=== PATIENT | female | born 1990 | race Caucasian/White ===

== ENCOUNTER → 2018-07-16 | Emergency (ER) | payer BC, OTHER ==
[~2018-07-16] VITALS: Ht 180.3 cm; Wt 102.1 kg
[~2018-07-16] MED LIST: DOXY100C2 PO; HYDR-4226 PO; KETOROLAC 30 MG/ML VIAL IVP ONE; ONDA8TAB9 PO; ONDANSETRON 4 MG/2 ML (SDV) Z0FRAN IVP ONE; PANT40TA2 PO; SULF1TAB38 PO; fentaNYL INJECTION 100 MCG/2 ML AMP IVP ONE
[2018-07-16 21:20] VITALS: BP 136/89
--- NOTE | 2018-07-16 21:22 | ED General ---
General Stated Complaint: GALBLADDER PAIN Source of Information: Patient Exam Limitations: No Limitations History of Present Illness Date Seen by Provider: Jul 16, 2018 Time Seen by Provider: 21:20 Initial Comments Abdominal pain radiating through to her back. This is been ongoing and intermittent for about a year. She's never followed up on this because she's been "scared". She denies any nausea. Denies any fevers or chills. States that she "shits all the time" and that it is usually diarrhea no nausea or vomiting, the pain is worsened by eating. Timing/Duration: Intermittent Severity: Moderate Associated Systoms: No Nausea/Vomiting Allergies and Home Medications Allergies Coded Allergies: Aspirin (Unverified Allergy, Mild, 06/15/11) Home Medications Doxycycline Hyclate 100 Mg Capsule, 1 EACH PO BID Prescribed by: DERIC MANZANARES on 06/15/11 0245 Hydrocodone/Acetaminophen 1 Each Tablet, 1 EACH PO Q6H PRN for PAIN-MODERATE Prescribed by: CHANDLER BALDWIN on 07/16/182152 Ondansetron 8 Mg Tab.rapdis, 8 MG PO Q6H PRN for NAUSEA/VOMITING Prescribed by: CHANDLER BALDWIN on 07/16/182152 Pantoprazole Sodium 40 Mg Tablet.dr, 40 MG PO DAILY Prescribed by: CHANDLER BALDWIN on 07/16/182152 Trimethoprim/Sulfamethoxazole 1 Ea Tablet, 1 EA PO BID, (Reported) Patient Home Medication List Home Medication List Reviewed: Yes Review of Systems Review of Systems Constitutional: see HPI EENTM: see HPI Respiratory: no symptoms reported Cardiovascular: no symptoms reported Gastrointestinal: abdominal pain, diarrhea; No nausea, No vomiting Genitourinary: no symptoms reported Musculoskeletal: no symptoms reported Skin: no symptoms reported Psychiatric/Neurological: No Symptoms Reported Hematologic/Lymphatic: No Symptoms Reported Immunological/Allergic: no symptoms reported Past Uhqexkc-Vgyoua-Vmzaii Hx Patient Social History Recent Foreign Travel: No Contact w/Someone Who Travel: No Physical Exam Vital Signs Vital Signs - First Documented 07/16/18 21:20 Temp 98.6 Pulse 89 Resp 18 B/P (MAP) 136/89 (105) Pulse Ox 100 Capillary Refill : Height, Weight, BMI Height: '" Weight: lbs. oz. kg; BMI Method:Stated General Appearance: No Apparent Distress, WD/WN Eyes: Bilateral Eye Normal Inspection, Bilateral Eye PERRL, Bilateral Eye EOMI Neck: Full Range of Motion, Normal Inspection Respiratory: Normal Breath Sounds, No Accessory Muscle Use, No Respiratory Distress Cardiovascular: Regular Rate, Rhythm, Normal Peripheral Pulses Gastrointestinal: Normal Bowel Sounds, Non Tender, Soft Extremity: Normal Capillary Refill, Normal Inspection Neurologic/Psychiatric: Alert, Oriented x3, No Motor/Sensory Deficits Skin: Normal Color, Warm/Dry Progress/Results/Core Measures Suspected Sepsis SIRS Temperature: Pulse: Respiratory Rate: Laboratory Tests 07/16/18 21:17: White Blood Count 12.8H Blood Pressure / Mean: Laboratory Tests 07/16/18 21:17: Creatinine 1.04, Platelet Count 233, Total Bilirubin 0.2 Results/Orders Lab Results Laboratory Tests Test 07/16/18 21:17 Range/Units White Blood Count 12.8 H 4.3-11.0 10^3/uL Red Blood Count 4.84 4.35-5.85 10^6/uL Hemoglobin 13.2 11.5-16.0 G/DL Hematocrit 40 35-52 % Mean Corpuscular Volume 83 80-99 FL Mean Corpuscular Hemoglobin 27 25-34 PG Mean Corpuscular Hemoglobin Concent 33 32-36 G/DL Red Cell Distribution Width 14.2 10.0-14.5 % Platelet Count 233 130-400 10^3/uL Mean Platelet Volume 13.2 H 7.4-10.4 FL Neutrophils (%) (Auto) 65 42-75 % Lymphocytes (%) (Auto) 29 12-44 % Monocytes (%) (Auto) 5 0-12 % Eosinophils (%) (Auto) 1 0-10 % Basophils (%) (Auto) 0 0-10 % Neutrophils # (Auto) 8.3 H 1.8-7.8 X 10^3 Lymphocytes # (Auto) 3.7 1.0-4.0 X 10^3 Monocytes # (Auto) 0.6 0.0-1.0 X 10^3 Eosinophils # (Auto) 0.1 0.0-0.3 10^3/uL Basophils # (Auto) 0.0 0.0-0.1 10^3/uL Sodium Level 139 135-145 MMOL/L Potassium Level 3.4 L 3.6-5.0 MMOL/L Chloride Level 105 98-107 MMOL/L Carbon Dioxide Level 21 21-32 MMOL/L Anion Gap 13 5-14 MMOL/L Blood Urea Nitrogen 8 7-18 MG/DL Creatinine 1.04 0.60-1.30 MG/DL Estimat Glomerular Filtration Rate > 60 BUN/Creatinine Ratio 8 Glucose Level 91 70-105 MG/DL Calcium Level 9.6 8.5-10.1 MG/DL Corrected Calcium 8.5-10.1 MG/DL Total Bilirubin 0.2 0.1-1.0 MG/DL Aspartate Amino Transf (AST/SGOT) 11 5-34 U/L Alanine Aminotransferase (ALT/SGPT) 13 0-55 U/L Alkaline Phosphatase 75 40-136 U/L Total Protein 7.8 6.4-8.2 GM/DL Albumin 4.7 H 3.2-4.5 GM/DL Lipase 36 8-78 U/L Serum Test, Qualitative NEGATIVE NEGATIVE My Orders Orders - CHANDLER BALDWIN APRN Cbc With Automated Diff (07/16/18 21:11) Comprehensive Metabolic Panel (07/16/18 21:11) Ua Culture If Indicated (07/16/18 21:11) Iv Heplock-Insert (Order) (07/16/18 21:11) Lipase (07/16/18 21:11) Hcg,Qualitative Serum (07/16/18 21:11) Ketorolac Injection (Toradol Injection) (07/16/18 21:15) Fentanyl Injection (Sublimaze Injection (07/16/18 21:15) Ondansetron Injection (Zofran Injectio (07/16/18 21:15) Ct Abdomen/Pelvis W (07/16/18 21:19) Medications Given in ED Current Medications Medications Dose Ordered Sig/Juany Route Start Time Stop Time Status Last Admin Dose Admin Fentanyl Citrate 50 mcg ONCE ONCE IVP 07/16/18 21:15 07/16/18 21:16 DC 07/16/18 21:35 50 MCG Ketorolac Tromethamine 30 mg ONCE ONCE IVP 07/16/18 21:15 07/16/18 21:16 DC 07/16/18 21:34 30 MG Ondansetron HCl 4 mg ONCE ONCE IVP 07/16/18 21:15 07/16/18 21:16 DC 07/16/18 21:35 4 MG Vital Signs/I&O 07/16/18 21:20 Temp 98.6 Pulse 89 Resp 18 B/P (MAP) 136/89 (105) Pulse Ox 100 Capillary Refill : Departure Impression Primary Impression: Right upper quadrant abdominal pain Disposition: 01 HOME, SELF-CARE Condition: Stable Departure-Patient Inst. Decision time for Depature: 21:50 Referrals: [facility] (PCP/Family) Primary Care Physician Patient Instructions: Acute Abdomen (Belly Pain), Adult (DC) Add. Discharge Instructions: Your abdominal pain needs further evaluated with a cold bladder ultrasound. Nausea medication as needed in the meantime, bland non-spicy low-fat diet without any greasy foods in the meantime. Call the scheduling department tomorrow listed on your order for outpatient ultrasound today to make an appointment for this gallbladder ultrasound. The results of this will be sent to your primary care provider. Whatever you have this ultrasound scheduled for you will need to have nothing to eat or drink for 4 hours prior to the ultrasound. Scripts Pantoprazole Sodium (Protonix) 40 Mg Tablet.dr 40 MG PO DAILY, #20 TAB Prov: CHANDLER BALDWIN APRN 07/16/18 Ondansetron (Zofran Odt) 8 Mg Tab.rapdis 8 MG PO Q6H PRN for NAUSEA/VOMITING, #10 TAB Prov: CHANDLER BALDWIN APRN 07/16/18 Hydrocodone/Acetaminophen ([place] 5-325 Tablet) 1 Each Tablet 1 EACH PO Q6H PRN for PAIN-MODERATE MDD 10, #10 TAB Prov: CHANDLER BALDWIN APRN 07/16/18 Work/School Note: Work Release Form Date Seen in the Emergency Department: Jul 16, 2018 Return to Work: Jul 18, 2018 CHANDLER BALDWIN APRN Jul 16, 2018 21:22
[2018-07-16 21:25] LABS: BASOPHILS % (AUTO) 0 % (0-10); EOSINOPHILS # (AUTO) 0.1 10^3/uL (0.0-0.3); EOSINOPHILS % (AUTO) 1 % (0-10); HEMATOCRIT 40 % (35-52); HEMOGLOBIN 13.2 G/DL (11.5-16.0); LYMPHOCYTES # (AUTO) 3.7 X 10^3 (1.0-4.0); LYMPHOCYTES % (AUTO) 29 % (12-44); MEAN CORPUSCULAR HEMOGLOBIN 27 PG (25-34); MEAN CORPUSCULAR HGB CONC 33 G/DL (32-36); MEAN CORPUSCULAR VOLUME 83 FL (80-99); MEAN PLATELET VOLUME 13.2 FL (7.4-10.4); MONOCYTES # (AUTO) 0.6 X 10^3 (0.0-1.0); MONOCYTES % (AUTO) 5 % (0-12); NEUTROPHILS # (AUTO) 8.3 X 10^3 (1.8-7.8); NEUTROPHILS % (AUTO) 65 % (42-75); PLATELET COUNT 233 10^3/uL (130-400); RED BLOOD COUNT 4.84 10^6/uL (4.35-5.85); RED CELL DISTRIBUTION WIDTH 14.2 % (10.0-14.5); WHITE BLOOD COUNT 12.8 10^3/uL (4.3-11.0)
[2018-07-16 21:43] LABS: ALANINE AMINOTRANSFERASE 13 U/L (0-55); ALBUMIN 4.7 GM/DL (3.2-4.5); ALKALINE PHOSPHATASE 75 U/L (40-136); BILIRUBIN,TOTAL 0.2 MG/DL (0.1-1.0); BUN/CREATININE RATIO 8; CALCIUM 9.6 MG/DL (8.5-10.1); CARBON DIOXIDE 21 MMOL/L (21-32); CHLORIDE 105 MMOL/L (98-107); CREATININE SERUM 1.04 MG/DL (0.60-1.30); GFR ESTIMATED > 60; GLUCOSE 91 MG/DL (70-105); LIPASE 36 U/L (8-78); POTASSIUM 3.4 MMOL/L (3.6-5.0); SODIUM 139 MMOL/L (135-145); TOTAL PROTEIN 7.8 GM/DL (6.4-8.2)
--- NOTE | 2018-07-17 06:18 | Diagnostic Imaging Report ---
PROCEDURE: CT abdomen and pelvis with contrast. TECHNIQUE: Multiple contiguous axial images were obtained through the abdomen and pelvis after administration of intravenous contrast. INDICATION: Right upper quadrant abdominal pain. FINDINGS: The lung bases are clear. Liver appears normal. Gallbladder is decompressed. Pancreas is normal. Spleen is not enlarged. Kidneys and adrenals appear normal. The appendix appears normal. Small bowel is not dilated. Colon is unremarkable. There is no intraperitoneal free air or free fluid. Uterus and adnexa appear normal. Urinary bladder is normal. IMPRESSION: Negative CT abdomen and pelvis. I agree with preliminary interpretation. Dictated by: Dictated on workstation # [id number]
== END | disposition home or self-care (01) ==
LOC: EDUNIT# 21:07 → ER 21:09
DX: R10.11 Right upper quadrant pain (principal); Z88.6 Allergy status to analgesic agent
CPT/HCPCS: 36415; 74177; 80053; 83690; 84703; 85025; 96374; 96375

== ENCOUNTER 2021-04-09 11:22 | Emergency (ER) | payer SELFPAY ==
[~2021-04-09] VITALS: Ht 180 cm; Wt 104.0 kg
[~2021-04-09 11:22] MED LIST changes: -KETOROLAC 30 MG/ML VIAL IVP ONE; -ONDANSETRON 4 MG/2 ML (SDV) Z0FRAN IVP ONE; -fentaNYL INJECTION 100 MCG/2 ML AMP IVP ONE
--- NOTE | 2021-04-09 11:58 | ED Lower Extremity ---
General Chief Complaint: Lower Extremity Stated Complaint: RIGHT HEEL PAIN/SWELLING Source: patient History of Present Illness Date Seen by Provider: Apr 09, 2021 Time Seen by Provider: 11:26 Initial Comments 30 yo female presenting with pain to her right heel and Achilles tendon area. She states it has been painful for the last 4 days. Is worse with standing and walking. 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 She denies any acute injury but does again have a lot of repetitive standing and walking. She had some mild pain on the left side but that resolved quickly. However this pain on the right side is lasted for 4 days. She denies any twisting or acute injury. She has been taking some old hydrocodone that she had from a another incident but states they are over a year old so she thinks that they may be and not been very helpful. Resting seems to help some but essentially start walking or standing for long time it starts hurting again. She states that she recently moved back to the [facility] and has not established with provider. Onset: other (4 days) Pain/Injury Location: right ankle (achilles), right heel Method of Injury: unknown Modifying Factors: Worse With Movement; Improves With Rest Allergies and Home Medications Allergies Coded Allergies: aspirin (Unverified Allergy, Mild, 06/15/11) Home Medications Doxycycline Hyclate 100 Mg Capsule, 1 EACH PO BID Prescribed by: DERIC MANZANARES on 06/15/11 0245 Hydrocodone/Acetaminophen 1 Each Tablet, 1 EACH PO Q6H PRN for PAIN-MODERATE Prescribed by: CHANDLER BALDWIN on 07/16/182152 Hydrocodone/Acetaminophen 1 Each Tablet, 1 TAB PO Q6H PRN for PAIN-SEVERE (8-10) Prescribed by: POLLO BELLO on 04/09/21 1529 Ibuprofen 800 Mg Tablet, 800 MG PO Q8H PRN for pain/inflammation Prescribed by: POLLO BELLO on 04/09/21 1528 Ondansetron 8 Mg Tab.rapdis, 8 MG PO Q6H PRN for NAUSEA/VOMITING Prescribed by: CHANDLER BALDWIN on 07/16/182152 Pantoprazole Sodium 40 Mg Tablet.dr, 40 MG PO DAILY Prescribed by: CHANDLER BALDWIN on 07/16/182152 Trimethoprim/Sulfamethoxazole 1 Ea Tablet, 1 EA PO BID, (Reported) Patient Home Medication List Home Medication List Reviewed: Yes Review of Systems Constitutional: No chills, No fever EENTM: no symptoms reported Respiratory: no symptoms reported Cardiovascular: no symptoms reported Gastrointestinal: no symptoms reported Genitourinary: no symptoms reported Musculoskeletal: see HPI Skin: No rash Psychiatric/Neurological: Denies Numbness, Denies Paresthesia Past Izsrnmu-Lpngkv-Ngmcxx Hx Patient Social History Tobacco Use?: Yes Tobacco type used: Cigarettes Smoking Status: Current Everyday Smoker Use of E-Cig and/or Vaping dev: No Substance use?: Yes Substance type: Marijuana Alcohol Use?: No Pt feels they are or have been: No Seasonal Allergies Seasonal Allergies: No Past Medical History Surgeries: Yes Tonsillectomy Respiratory: No Cardiac: No Neurological: No Genitourinary: No Gastrointestinal: No Musculoskeletal: No Endocrine: No Cancer: No Psychosocial: No Integumentary: No Physical Exam Vital Signs Vital Signs - First Documented 04/09/21 11:40 Temp 36.2 Pulse 92 Resp 18 B/P (MAP) 163/91 (115) Pulse Ox 100 O2 Delivery Room Air Capillary Refill : Height, Weight, BMI Height: 5'11.00" Weight: 225lbs. oz. 102.479368hy; BMI Method:Stated General Appearance: WD/WN, no apparent distress Cardiovascular: normal peripheral pulses Ankles: right ankle pain (to palpation of achilles and heel), right ankle soft tissue tenderness (along achilles) Neurologic/Psychiatric: title 1 tutor II-XII nml as tested, alert, oriented x 3 Skin: normal color, warm/dry Progress/Results/Core Measures Results/Orders My Orders Orders - POLLO BELLO MD Foot 3 View Right (04/09/21 11:49) Ed Ortho/Other Supplies Order (04/09/21 12:33) Orthopedic Equiment (04/09/21 12:33) Vital Signs/I&O 04/09/21 04/09/21 11:40 12:37 Temp 36.2 36.2 Pulse 92 92 Resp 18 18 B/P (MAP) 163/91 (115) 163/91 (115) Pulse Ox 100 100 O2 Delivery Room Air Progress Progress Note #1: Progress Note obtain imaging of the foot and heel to look for bony abnormality. If this does not show anything acute plan to treat with a boot to help immobilize the heel and let the Achilles tendon and heel rest. There is no obvious open sores on the heel or foot to cause infection. There is tenderness with palpation and movement from the posterior half of the foot the heel and posterior area around the Achilles tendon. No crepitus noted. Progress Note #2: Progress Note No obvious fracture or dislocation noted. Will try treating with anti- inflammatories and a few pain pills. Placed in the boot for rest immobilization of the heel for the next 7 to 10 days. Counseled to be off for the next 2 to 3 days and call the clinic to get established for care. May need to also see orthopedics with Jairo Rodney or Dr. COKER. If she continues to have issues then she may also need to have an MRI done to evaluate the Achilles tendon in more detail for CT scan to look at the bones and tissues better Progress Note #3: Progress Note xrays demonstrate no fracture, dislocation or acute bony injury. Will treat with walking boot and rest. Counseled on follow-up and return precautions. Use NSAIDs and will also prescribe a few pain pills for severe pain. Diagnostic Imaging Diagonstic Imaging: Xray Plain Films/CT/US/NM/MRI: other (Right foot) Comments NAME: ELIEL JEFFERS [facility] REC#: [id number] PT STATUS: REG ER : 1990 PHYSICIAN: POLLO BELLO MD ADMIT DATE: 04/09/21/ER FS Signed Date of Exam:04/09/21 FOOT 3 VIEW RIGHT CLINICAL HISTORY: Right heel pain. Right foot swelling. COMPARISON: None. TECHNIQUE: 3 views of the right foot. FINDINGS: There is no acute fracture or dislocation of the right foot. Alignment is anatomic. The imaged joint spaces are preserved. IMPRESSION: 1. No acute fracture or dislocation is seen in the right foot. Dictated by: Dictated on workstation # [id number] Dict: 04/09/21 1202 Trans: 04/09/211216 [facility] [id number] Interpreted by: MALOCLM LAYNE DO Electronically signed by: MALCOLM LAYNE DO 04/09/21 1217 Reviewed: Reviewed by Me Departure Impression Primary Impression: Inflammatory pain of right heel Additional Impression: Achilles tendinitis, right leg Disposition: 01 HOME, SELF-CARE Condition: Stable Departure-Patient Inst. Decision time for Depature: 12:25 Referrals: [facility] (PCP/Family) Primary Care Physician PANKAJ COKER MD Patient Instructions: Overuse Injuries (DC), Opioids for Short-Term Treatment of Pain ED, Tendinopathy (DC) Add. Discharge Instructions: Use ice 20-30 minutes every few hours as needed for pain and inflammation. Rest and elevate the foot and heel as much as possible. Use the walking boot to let your heel and foot rest. Continue using this and wearing it until you can follow up with clinic. Call the [facility] clinic at [phone] to see about establishing care with a primary provider. You may also call [phone] to see about setting up an appointment with Dr. Coker or his nurse practitioner Jairo Rodney at the [facility] All discharge instructions reviewed with patient and/or family. Voiced understanding. Scripts Hydrocodone/Acetaminophen (Hydrocodone-Acetamin 5-325 mg) 1 Each Tablet 1 TAB PO Q6H PRN for PAIN-SEVERE (8-10) for 5 Days, #20 TAB 0 Refills Prov: POLLO BELLO MD 04/09/21 Ibuprofen (Ibuprofen) 800 Mg Tablet 800 MG PO Q8H PRN for pain/inflammation for 10 Days, #30 TAB 0 Refills Prov: POLLO BELLO MD 04/09/21 Work/School Note: Work Release Form Date Seen in the Emergency Department: Apr 09, 2021 Return to Work: Apr 12, 2021 Other Restrictions Listed Below: Use walking boot until cleared by doctor Images Extremities-Lower 1 - Tenderness (tender to palpation along heel and up the back of foot/ankle along achilles tendon. No crepitus/increased warmth) POLLO BELLO MD Apr 09, 2021 11:57
--- NOTE | 2021-04-09 12:10 | Diagnostic Imaging Report ---
CLINICAL HISTORY: Right heel pain. Right foot swelling. COMPARISON: None. TECHNIQUE: 3 views of the right foot. FINDINGS: There is no acute fracture or dislocation of the right foot. Alignment is anatomic. The imaged joint spaces are preserved. IMPRESSION: 1. No acute fracture or dislocation is seen in the right foot. Dictated by: Dictated on workstation # [id number]
[2021-04-09] MEDS ORDERED: IBUP-1780 PO ×2 (12:29→15:28)
[2021-04-09] MEDS ORDERED: ACHD5005 PO ×2 (12:29→15:28)
[2021-04-09 12:37] VITALS: BP 163/91
== END 2021-04-09 12:50 | disposition home or self-care (01) ==
LOC: EDUNIT# 11:22 → ER FS 11:25
DX: M79.671 Pain in right foot (principal); M76.61 Achilles tendinitis, right leg; F17.210 Nicotine dependence, cigarettes, uncomplicated
CPT/HCPCS: 73630; 99283; L2114

== ENCOUNTER 2021-11-11 13:07 | Emergency (ER) | payer SELFPAY ==
[~2021-11-11] VITALS: Ht 180 cm; Wt 117.9 kg
[~2021-11-11 13:07] MED LIST changes: +ACHD5005 PO; +IBUP-1780 PO
--- NOTE | 2021-11-11 13:26 | ED Lower Extremity ---
General Chief Complaint: Lower Extremity Stated Complaint: LEFT FOOT INJURY-FALL History of Present Illness Date Seen by Provider: Nov 11, 2021 Time Seen by Provider: 13:26 Initial Comments 31-year-old female who reports that she was coming down some stairs. When she got to the bottom stair she stepped down into some water slipped and fell. She reports that she denies pain in her left ankle. She is able to ambulate and bear weight but hurts. It happened earlier this morning. She does report some mild bruising to the anterior aspect of her upper foot/ Allergies and Home Medications Allergies Coded Allergies: aspirin (Unverified Allergy, Mild, 06/15/11) Patient Home Medication List Home Medication List Reviewed: Yes Doxycycline Hyclate (Doxycycline Hyclate) 100 Mg Capsule, 1 EACH PO BID Prescribed by: DERIC MANZANARES on 06/15/11 0245 Hydrocodone/Acetaminophen (Hydrocodone/Acetaminophen 5 MG/325 MG TAB) 1 Each Tablet, 1 EACH PO Q6H PRN for PAIN-MODERATE Prescribed by: CHANDLER BALDWIN on 07/16/182152 Hydrocodone/Acetaminophen (Hydrocodone-Acetamin 5-325 mg) 1 Each Tablet, 1 TAB PO Q6H PRN for PAIN-SEVERE (8-10) Prescribed by: POLLO BELLO on 04/09/21 1529 Ibuprofen (Ibuprofen) 800 Mg Tablet, 800 MG PO Q8H PRN for pain/inflammation Prescribed by: POLLO BELLO on 04/09/21 1528 Ondansetron (Zofran Odt) 8 Mg Tab.rapdis, 8 MG PO Q6H PRN for NAUSEA/VOMITING Prescribed by: CHANDLER BALDWIN on 07/16/182152 Pantoprazole Sodium (Protonix) 40 Mg Tablet.dr, 40 MG PO DAILY Prescribed by: CHANDLER BALDWIN on 07/16/182152 Trimethoprim/Sulfamethoxazole (Bactrim Ds) 1 Ea Tablet, 1 EA PO BID, (Reported) Entered as Reported by: ASHLEY CASEY on 06/15/11 0217 Review of Systems Constitutional: no symptoms reported EENTM: no symptoms reported Respiratory: no symptoms reported Cardiovascular: no symptoms reported Gastrointestinal: no symptoms reported, see HPI Musculoskeletal: see HPI Skin: see HPI Psychiatric/Neurological: No Symptoms Reported Past Fvaudqs-Zhqkek-Tdjrnl Hx Seasonal Allergies Seasonal Allergies: No Past Medical History Surgeries: Yes Tonsillectomy Respiratory: No Cardiac: No Neurological: No Genitourinary: No Gastrointestinal: No Musculoskeletal: No Endocrine: No Cancer: No Psychosocial: No Integumentary: No Physical Exam Vital Signs Vital Signs - First Documented 11/11/21 13:23 Temp 36.5 Pulse 93 Resp 17 B/P (MAP) 152/97 (115) O2 Delivery Room Air Capillary Refill : Height, Weight, BMI Height: 5'11.00" Weight: 225lbs. oz. 102.715578tm; 32.00 BMI Method:Stated General Appearance: WD/WN, no apparent distress Neck: full range of motion, supple Cardiovascular: normal peripheral pulses, regular rate, rhythm Respiratory: lungs clear, normal breath sounds Gastrointestinal: non tender, soft Hips: bilateral hip non-tender Legs: bilateral leg non-tender Knees: bilateral knee non-tender Ankles: right ankle non-tender, right ankle normal inspection, right ankle normal range of motion, right ankle no evidence of injury; left ankle soft tissue tenderness, left ankle swelling Neurologic/Tendon: normal sensation, normal motor functions Neurologic/Psychiatric: alert, normal mood/affect, oriented x 3 Skin: other (Mild ecchymosis to the anterior aspect of the left ankle) Progress/Results/Core Measures Results/Orders My Orders Orders - GLADYS CROUCH DO Ankle 3 View Left (11/11/21 13:28) Vital Signs/I&O 11/11/21 11/11/21 13:23 14:27 Temp 36.5 36.5 Pulse 93 93 Resp 17 17 B/P (MAP) 152/97 (115) 152/97 O2 Delivery Room Air Room Air Progress Progress Note : Progress Note Patient's x-ray shows no acute findings. Patient with a ankle sprain. Discussed with her supportive care. Patient stable discharged home. If her symptoms are not improved in 7 to 10 days she should follow-up with her primary care provider for repeat evaluation Diagnostic Imaging Diagonstic Imaging: Xray Plain Films/CT/US/NM/MRI: ankle Comments ANKLE 3 VIEW LEFT HISTORY: Left ankle pain. TECHNIQUE: Three views of the left ankle. COMPARISON: None. FINDINGS: No acute fracture or dislocation is seen in the left ankle. Alignment appears normal. Joint spaces are preserved. The ankle mortise is symmetric and the talar dome is intact. There is no ankle joint effusion. IMPRESSION: 1. No acute osseous abnormality is seen in the left ankle. Reviewed: Reviewed by Me, Reviewed/Discussed Departure Impression Primary Impression: Left ankle sprain Qualified Codes: S93.402A - Sprain of unspecified ligament of left ankle, initial encounter Disposition: HOME, SELF-CARE Condition: Stable Departure-Patient Inst. Referrals: [facility] (PCP/Family) Primary Care Physician Patient Instructions: Ankle Sprain ED Add. Discharge Instructions: Ice for 20 minutes 4 times daily for the next 24 to 36 hours then you may use warm moist heat after that Tylenol or ibuprofen as needed for discomfort Tomasz wrap or similar ankle brace available at [facility], [facility], etc. as needed for pain All discharge instructions reviewed with patient and/or family. Voiced understanding. GLADYS CROCUH DO Nov 11, 2021 13:26
--- NOTE | 2021-11-11 14:07 | Diagnostic Imaging Report ---
HISTORY: Left ankle pain. TECHNIQUE: Three views of the left ankle. COMPARISON: None. FINDINGS: No acute fracture or dislocation is seen in the left ankle. Alignment appears normal. Joint spaces are preserved. The ankle mortise is symmetric and the talar dome is intact. There is no ankle joint effusion. IMPRESSION: 1. No acute osseous abnormality is seen in the left ankle. Dictated by: Dictated on workstation # [id number]
[2021-11-11 14:27] VITALS: BP 152/97
== END 2021-11-11 14:27 | disposition home or self-care (01) ==
LOC: EDUNIT# 13:07 → ER FS 13:09
DX: S93.402A Sprain of unspecified ligament of left ankle, initial encounter (principal); W10.9XXA Fall (on) (from) unspecified stairs and steps, initial encounter
CPT/HCPCS: 73610

== ENCOUNTER 2022-01-25 17:22 | Emergency (ER) | payer OTHER ==
[~2022-01-25] VITALS: Ht 180 cm; Wt 100.0 kg
[2022-01-25] MEDS ORDERED: CYCLOBENZAPRINE 10 MG (FLEXERIL) TAB PO SCH (18:00)
[2022-01-25] MEDS ORDERED: KETOROLAC 60 MG/2 ML VIAL IM ONE (18:00)
--- NOTE | 2022-01-25 18:05 | ED Upper Extremity ---
General Chief Complaint: Upper Extremity Stated Complaint: R SIDE SHOULDER PAIN Source: patient Exam Limitations: no limitations History of Present Illness Date Seen by Provider: January 25, 2022 Time Seen by Provider: 17:30 Initial Comments Patient is a 31-year-old female who presents with right shoulder pain after lifting a heavy item from the ground 3 minutes prior to ED arrival. Patient reports right trapezius muscle pain/spasm worse with arm movement and rotation. Patient took 800 mg of ibuprofen prior to ED arrival with limited relief. Denies neck pain and right shoulder joint pain. No other acute symptoms or complaints. Onset: this morning Severity: moderate Pain/Injury Location: right shoulder Method of Injury: other Modifying Factors: Improves With Other Allergies and Home Medications Allergies Coded Allergies: aspirin (Unverified Allergy, Mild, 06/15/11) Patient Home Medication List Home Medication List Reviewed: Yes Doxycycline Hyclate (Doxycycline Hyclate) 100 Mg Capsule, 1 EACH PO BID Prescribed by: DERIC MANZANARES on 06/15/11 0245 Hydrocodone/Acetaminophen (Hydrocodone/Acetaminophen 5 MG/325 MG TAB) 1 Each Tablet, 1 EACH PO Q6H PRN for PAIN-MODERATE Prescribed by: CHANDLER BALDWIN on 07/16/182152 Hydrocodone/Acetaminophen (Hydrocodone-Acetamin 5-325 mg) 1 Each Tablet, 1 TAB PO Q6H PRN for PAIN-SEVERE (8-10) Prescribed by: POLLO BELLO on 04/09/21 1529 Ibuprofen (Ibuprofen) 800 Mg Tablet, 800 MG PO Q8H PRN for pain/inflammation Prescribed by: POLLO BELLO on 04/09/21 1528 Ondansetron (Zofran Odt) 8 Mg Tab.rapdis, 8 MG PO Q6H PRN for NAUSEA/VOMITING Prescribed by: CHANDLER BALDWIN on 07/16/182152 Pantoprazole Sodium (Protonix) 40 Mg Tablet.dr, 40 MG PO DAILY Prescribed by: CHANDLER BALDWIN on 07/16/182152 Trimethoprim/Sulfamethoxazole (Bactrim Ds) 1 Ea Tablet, 1 EA PO BID, (Reported) Entered as Reported by: ASHLEY CASEY on 06/15/11 0217 Review of Systems Constitutional: see HPI EENTM: see HPI Respiratory: see HPI Cardiovascular: see HPI Gastrointestinal: see HPI Genitourinary: see HPI Musculoskeletal: see HPI Skin: other Psychiatric/Neurological: Other Past Rnekabr-Hrjinw-Khhmtq Hx Patient Social History Tobacco Use?: No Seasonal Allergies Seasonal Allergies: No Past Medical History Surgeries: Yes Tonsillectomy Respiratory: No Cardiac: No Neurological: No Genitourinary: No Gastrointestinal: No Musculoskeletal: No Endocrine: No Cancer: No Psychosocial: No Integumentary: No Physical Exam Vital Signs Capillary Refill : Height, Weight, BMI Height: 5'11.00" Weight: 225lbs. oz. 102.205764so; 36.00 BMI Method:Stated General Appearance: WD/WN, moderate distress HEENT: PERRL/EOMI, normal ENT inspection Neck: non-tender, full range of motion, supple Cardiovascular: regular rate, rhythm Respiratory: lungs clear Back: muscle spasm (Right trapezius) Shoulder: no evidence of injury, normal ROM Elbow/Forearm: non-tender, Right Progress/Results/Core Measures Results/Orders My Orders Orders - CAMERON JIMENES DO Ketorolac Injection (Toradol Injection) (01/25/22 18:00) Cyclobenzaprine Tablet (Flexeril Tablet) (01/25/22 18:00) Medications Given in ED Current Medications Medications Dose Ordered Sig/Juany Route Start Time Stop Time Status Last Admin Dose Admin Ketorolac Tromethamine 60 mg ONCE ONCE IM 01/25/22 18:00 01/25/22 18:01 DC 01/25/22 18:04 60 MG Departure Communication (Admissions) Reproducible musculoskeletal pain without midline tenderness or joint involvement. Pain addressed with provement. Recommendations are PCP follow-up with supportive care. Return precautions reviewed. Patient verbalizes understanding agreement with discharge instructions prior to departure. Impression Primary Impression: Strain of right trapezius muscle Disposition: HOME, SELF-CARE Condition: Stable Departure-Patient Inst. Referrals: [facility] (PCP/Family) Primary Care Physician Patient Instructions: Muscle Strain (DC) Add. Discharge Instructions: You were evaluated in the emergency department for right shoulder pain. Please continue ibuprofen for pain and take tramadol and Flexeril as needed for additional relief. Limit right arm use and lifting until cleared by your primary care physician. All discharge instructions reviewed with patient and/or family. Voiced understanding. Scripts Cyclobenzaprine HCl (Cyclobenzaprine HCl) 10 Mg Tablet 10 MG PO TID, #30 TAB Prov: CAMERON JIMENES DO 01/25/22 Tramadol HCl (Tramadol HCl) 50 Mg Tablet 50 MG PO Q6H PRN for PAIN for 3 Days, #10 TAB 0 Refills Prov: CAMERON JIMENES DO 01/25/22 Work/School Note: Work Release Form Date Seen in the Emergency Department: January 25, 2022 Return to Work: January 26, 2022 Restrictions: Need Release from Doctor CAMERON JIMENES DO January 25, 2022 18:05
[2022-01-25] MEDS ORDERED: CYCL10TA25 PO (18:15)
[2022-01-25] MEDS ORDERED: TRM50T PO (18:15)
== END 2022-01-25 18:25 | disposition home or self-care (01) ==
LOC: EDUNIT# 17:22 → ER FS 17:24
DX: S46.811A Strain of other muscles, fascia and tendons at shoulder and upper arm level, right arm, initial encounter (principal); X50.0XXA Overexertion from strenuous movement or load, initial encounter
CPT/HCPCS: 99283

== ENCOUNTER 2022-05-08 11:34 | Emergency (ER) | payer SELFPAY ==
[~2022-05-08] VITALS: Ht 180 cm; Wt 100.0 kg
[~2022-05-08 11:34] MED LIST changes: +CYCL10TA25 PO; +TRM50T PO
--- NOTE | 2022-05-08 12:18 | ED Lower Extremity ---
General Chief Complaint: Lower Extremity Stated Complaint: RT FOOT INJ Nursing Triage Note: RIGHT ANKLE AND GREAT TOE PAIN AFTER CATCHING HER GREAT TOE ON A CABINET 2 DAYS AGO. Source: patient Exam Limitations: no limitations History of Present Illness Date Seen by Provider: May 08, 2022 Time Seen by Provider: 11:45 Initial Comments Patient is 31-year-old female who presents with left foot swelling tenderness after hyperextending foot yesterday. Patient is continue to work walk on foot despite pain. Patient taking ibuprofen and Tylenol for pain. Onset: just prior to arrival Pain/Injury Location: left foot Method of Injury: other Modifying Factors: Improves With Other Allergies and Home Medications Allergies Coded Allergies: aspirin (Unverified Allergy, Mild, 06/15/11) Patient Home Medication List Home Medication List Reviewed: No Cyclobenzaprine HCl (Cyclobenzaprine HCl) 10 Mg Tablet, 10 MG PO TID Prescribed by: CAMERON JIMENES on 01/25/221814 Doxycycline Hyclate (Doxycycline Hyclate) 100 Mg Capsule, 1 EACH PO BID Prescribed by: DERIC MANZANARES on 06/15/11 0245 Hydrocodone/Acetaminophen (Hydrocodone/Acetaminophen 5 MG/325 MG TAB) 1 Each Tablet, 1 EACH PO Q6H PRN for PAIN-MODERATE Prescribed by: CHANDLER BALDWIN on 07/16/182152 Hydrocodone/Acetaminophen (Hydrocodone-Acetamin 5-325 mg) 1 Each Tablet, 1 TAB PO Q6H PRN for PAIN-SEVERE (8-10) Prescribed by: POLLO BELLO on 04/09/21 152 Ibuprofen (Ibuprofen) 800 Mg Tablet, 800 MG PO Q8H PRN for pain/inflammation Prescribed by: POLLO BELLO on 04/09/21 152 Ondansetron (Zofran Odt) 8 Mg Tab.rapdis, 8 MG PO Q6H PRN for NAUSEA/VOMITING Prescribed by: CHANDLER BALDWIN on 07/16/182152 Pantoprazole Sodium (Protonix) 40 Mg Tablet.dr, 40 MG PO DAILY Prescribed by: CHANDLER BALDWIN on 07/16/182152 Tramadol HCl (Tramadol HCl) 50 Mg Tablet, 50 MG PO Q6H PRN for PAIN Prescribed by: CAMERON JIMENES on 01/25/221815 Trimethoprim/Sulfamethoxazole (Bactrim Ds) 1 Ea Tablet, 1 EA PO BID, (Reported) Entered as Reported by: ASHLEY CASEY on 06/15/11 0217 Review of Systems Constitutional: see HPI Musculoskeletal: see HPI Past Sgixosq-Ezanrf-Rxvezu Hx Patient Social History Tobacco Use?: Yes Tobacco type used: Cigarettes Smoking Status: Current Everyday Smoker Use of E-Cig and/or Vaping dev: No Substance use?: Yes Substance type: Marijuana Alcohol Use?: No Pt feels they are or have been: No Seasonal Allergies Seasonal Allergies: No Past Medical History Surgeries: Yes Tonsillectomy Respiratory: No Cardiac: No Neurological: No Last Menstrual Period: May 08, 2022 Genitourinary: No Gastrointestinal: No Musculoskeletal: No Endocrine: No Cancer: No Psychosocial: No Integumentary: No Physical Exam Vital Signs Vital Signs - First Documented 05/08/22 11:39 Temp 36.1 Pulse 100 Resp 16 B/P (MAP) 179/99 (125) O2 Delivery Room Air Capillary Refill : Less Than 3 Seconds Height, Weight, BMI Height: 5'11.00" Weight: 225lbs. oz. 102.397329jh; 30.00 BMI Method:Stated General Appearance: WD/WN, no apparent distress Feet: left foot no evidence of injury, left foot abrasions/lacerations, left foot soft tissue tenderness Neurologic/Tendon: normal sensation, normal motor functions Progress/Results/Core Measures Results/Orders Vital Signs/I&O 05/08/22 11:39 Temp 36.1 Pulse 100 Resp 16 B/P (MAP) 179/99 (125) O2 Delivery Room Air Blood Pressure Mean: 125 Departure Communication (Admissions) Left foot sprain without deformity swelling. Recommendation is supportive care Impression Primary Impression: Sprain of left foot Disposition: 01 HOME, SELF-CARE Condition: Stable Departure-Patient Inst. Decision time for Depature: 12:18 Referrals: NO,LOCAL PHYSICIAN (PCP/Family) Primary Care Physician Patient Instructions: Foot Sprain ED Add. Discharge Instructions: Please wear postoperative shoe for comfort. Take ibuprofen for pain and Tylenol as needed for additional relief. Follow-up with your PCP in 5 to 7 days as needed. All discharge instructions reviewed with patient and/or family. Voiced understanding. Work/School Note: Work Release Form Date Seen in the Emergency Department: May 08, 2022 Return to Work: May 10, 2022 Restrictions: No Restrictions CAMERON JIMENES DO May 08, 2022 12:18
[2022-05-08 12:19] VITALS: BP 172/88
== END 2022-05-08 12:20 | disposition home or self-care (01) ==
LOC: EDUNIT# 11:34 → ER FS 11:36
DX: S93.602A Unspecified sprain of left foot, initial encounter (principal); F17.210 Nicotine dependence, cigarettes, uncomplicated; Z28.310 Unvaccinated for COVID-19; X50.1XXA Overexertion from prolonged static or awkward postures, initial encounter; Y92.59 Other trade areas as the place of occurrence of the external cause; Y99.0 Civilian activity done for income or pay
CPT/HCPCS: 99282

== ENCOUNTER 2023-03-19 09:12 | Emergency (ER) | payer OTHER ==
--- NOTE | 2023-03-19 09:34 | ED GU-Female ---
General Chief Complaint: OB < 20 WEEKS Stated Complaint: VAGINAL BLEEDING DURING Source: patient Exam Limitations: no limitations History of Present Illness Date Seen by Provider: Mar 19, 2023 Time Seen by Provider: 09:15 Initial Comments 32yoF with LMP the end of December coming in due to spotting vaginally. She has her first appointment tomorrow with her OB with [facility]. Previously saw Dr. Gao with her prior pregnancies, but he has retired. When she went to wipe this morning after using the bathroom, she noticed some red spotting on the toilet paper so presented here. Had some mild cramping yesterday, none right now. Did take some Tylenol this morning. She is on a medication to try to help this progress, she believes it could be progesterone. Otherwise denying any other acute complaints. She states that she has not required RhoGAM with prior pregnancies. Allergies and Home Medications Allergies Coded Allergies: aspirin (Unverified Allergy, Mild, 06/15/11) Patient Home Medication List Home Medication List Reviewed: Yes Cyclobenzaprine HCl (Cyclobenzaprine HCl) 10 Mg Tablet, 10 MG PO TID Prescribed by: CAMERON JIMENES on 01/25/221814 Doxycycline Hyclate (Doxycycline Hyclate) 100 Mg Capsule, 1 EACH PO BID Prescribed by: DERIC MANZANARES on 06/15/11 0245 Hydrocodone/Acetaminophen (Hydrocodone/Acetaminophen 5 MG/325 MG TAB) 1 Each Tablet, 1 EACH PO Q6H PRN for PAIN-MODERATE Prescribed by: CHANDLER BALDWIN on 07/16/182152 Hydrocodone/Acetaminophen (Hydrocodone-Acetamin 5-325 mg) 1 Each Tablet, 1 TAB PO Q6H PRN for PAIN-SEVERE (8-10) Prescribed by: POLLO BELLO on 04/09/21 1529 Ibuprofen (Ibuprofen) 800 Mg Tablet, 800 MG PO Q8H PRN for pain/inflammation Prescribed by: POLLO BELLO on 04/09/21 1528 Ondansetron (Zofran Odt) 8 Mg Tab.rapdis, 8 MG PO Q6H PRN for NAUSEA/VOMITING Prescribed by: CHANDLER BALDWIN on 07/16/182152 Pantoprazole Sodium (Protonix) 40 Mg Tablet.dr, 40 MG PO DAILY Prescribed by: CHANDLER BALDWIN on 07/16/182152 Tramadol HCl (Tramadol HCl) 50 Mg Tablet, 50 MG PO Q6H PRN for PAIN Prescribed by: CAMERON JIMENES on 01/25/221815 Trimethoprim/Sulfamethoxazole (Bactrim Ds) 1 Ea Tablet, 1 EA PO BID, (Reported) Entered as Reported by: ASHLEY CASEY on 06/15/11 0217 Review of Systems Review of Systems Constitutional: No fever EENTM: no symptoms reported Respiratory: no symptoms reported Cardiovascular: no symptoms reported Gastrointestinal: no symptoms reported Genitourinary: see HPI Musculoskeletal: no symptoms reported Skin: no symptoms reported Psychiatric/Neurological: No Symptoms Reported Endocrine: No Symptoms Reported Past Qptfnrs-Owmymo-Fhyzid Hx Patient Social History Tobacco Use?: Yes Tobacco type used: Cigarettes Seasonal Allergies Seasonal Allergies: No Past Medical History Surgeries: Yes Tonsillectomy Respiratory: No Cardiac: No Neurological: No Genitourinary: No Gastrointestinal: No Musculoskeletal: No Endocrine: No Cancer: No Psychosocial: No Integumentary: No Physical Exam Vital Signs Vital Signs - First Documented 03/19/23 09:18 Temp 36.2 Pulse 86 Resp 16 B/P (MAP) 140/98 (112) Pulse Ox 99 O2 Delivery Room Air Capillary Refill : Height, Weight, BMI Height: 5'11.00" Weight: 225lbs. oz. 102.249876ce; 30.00 BMI Method:Stated General Appearance: WD/WN, no apparent distress HEENT: PERRL/EOMI, normal ENT inspection, pharynx normal Neck: non-tender, full range of motion, supple, normal inspection Cardiovascular: regular rate, rhythm, no edema, no murmur Respiratory: chest non-tender, lungs clear, normal breath sounds, no respiratory distress, no accessory muscle use Gastrointestinal: normal bowel sounds, non tender, soft; No distended, No guarding Back: normal inspection, no CVA tenderness Extremities: normal range of motion, non-tender, normal inspection, no pedal edema, no calf tenderness, normal capillary refill Neurologic/Psychiatric: no motor/sensory deficits, alert, normal mood/affect Skin: normal color, warm/dry Progress/Results/Core Measures Suspected Sepsis SIRS Temperature: Pulse: Respiratory Rate: Blood Pressure / Mean: Results/Orders Lab Results Laboratory Tests Test 03/19/23 09:18 03/19/23 09:54 Range/Units Urine Color YELLOW Urine Clarity SL CLOUDY Urine pH 5.5 5-9 Urine Specific [place] 1.020 1.016-1.022 Urine Protein NEGATIVE NEGATIVE Urine Glucose (UA) NEGATIVE NEGATIVE Urine Ketones TRACE H NEGATIVE Urine Nitrite NEGATIVE NEGATIVE Urine Bilirubin NEGATIVE NEGATIVE Urine Urobilinogen 0.2 < = 1.0 MG/DL Urine Leukocyte Esterase 2+ H NEGATIVE Urine RBC (Auto) 3+ H NEGATIVE Urine RBC 5-10 H /HPF Urine WBC 5-10 H /HPF Urine Squamous Epithelial Cells 10-25 H /HPF Urine Crystals NONE /LPF Urine Bacteria MODERATE H /HPF Urine Casts NONE /LPF Urine Mucus MODERATE H /LPF Urine Culture Indicated YES My Orders Orders - JACINTO SCALES MD Hcg,Quantitative (03/19/23 09:31) Ua Culture If Indicated (03/19/23 09:31) Urine Culture (03/19/23 09:18) Vital Signs/I&O 03/19/23 09:18 Temp 36.2 Pulse 86 Resp 16 B/P (MAP) 140/98 (112) Pulse Ox 99 O2 Delivery Room Air Capillary Refill : Progress Note : Progress Note 32-year-old female with above history coming in due to vaginal spotting during . ABCs were intact and vitals were stable on presentation. Physical exam reassuring including a soft and nontender abdomen. Not having any significant bleeding here. I did a [id number] ultrasound showing an i ntrauterine with a heart rate just under 160. This rules out ectopic sufficiently. Urinalysis obtained to assess for asymptomatic bacteria which was positive. We will send a prescription for Macrobid. Beta- hCG also drawn so the patient can have follow-up labs in the next couple of days. She does have an OB appointment tomorrow. Otherwise well-appearing, I discussed that this is a threatened miscarriage at this point, and that unfortunately there are no medications or anything we can give to prevent if it is going to happen. She has had multiple other pregnancies, never required RhoGAM, would be appro priate for her to follow-up with her OB regarding all of her typical labs. I believe she is stable for discharge with outpatient follow-up. She was sent home with strict return precautions. Departure Impression Primary Impression: Threatened miscarriage Additional Impression: Asymptomatic bacteriuria during Disposition: HOME, SELF-CARE Condition: Stable Departure-Patient Inst. Decision time for Depature: 10:30 Referrals: NO,LOCAL PHYSICIAN (PCP/Family) Primary Care Physician Patient Instructions: Bleeding in Early ED Add. Discharge Instructions: At this point we would call this a threatened miscarriage. As long as you are bleeding during , there is a chance for miscarriage. This early on, there is nothing that can be done unfortunately. Please continue with your OB appointment tomorrow. He did have a beta-hCG drawn today that they can do a repeat lab draw in the next couple of days to see how the levels are changing which can help decide if this is a healthy . You still do need a forma l ultrasound as well. If you are using a supermax pad, and fully saturating this with blood every hour for several hours, we would want you to come back to the ER. Otherwise take Tylenol as needed for any cramping or pain. Additionally, you do have bacteria in your urine. It is recommended this is treated with an antibiotic during . This will be sent to [facility]. Scripts Nitrofurantoin Monohyd/M-Cryst (Macrobid 100 mg Capsule) 100 Mg Capsule 1 TAB PO BID for 5 Days, #10 CAP Prov: JACINTO SCALES MD 03/19/23 Work/School Note: Family Work Note, Patient Received Medical Care In the Emergency Department On: Mar 19, 2023 Patient Will Be Able to Return to Work/School On: Mar 20, 2023 Work Release Form Date Seen in the Emergency Department: Mar 19, 2023 Return to Work: Mar 20, 2023 Restrictions: No Restrictions JACINTO SCALES MD Mar 19, 2023 09:34
[2023-03-19 09:53] LABS: BILIRUBIN,URINE NEGATIVE (NEGATIVE); CLARITY,URINE SL CLOUDY; COLOR,URINE YELLOW; GLUCOSE, URINE (UA) NEGATIVE (NEGATIVE); KETONES,URINE TRACE (NEGATIVE); LEUKOCYTE ESTERASE ,URINE 2+ (NEGATIVE); NITRITE,URINE NEGATIVE (NEGATIVE); PH,URINE 5.5 (5-9); PROTEIN,URINE NEGATIVE (NEGATIVE)
[2023-03-19 10:13] LABS: BACTERIA,URINE MODERATE /HPF
[2023-03-19] MEDS ORDERED: NITR-65 PO (10:28)
[2023-03-19 10:29] VITALS: BP 140/98
== END 2023-03-19 10:29 | disposition home or self-care (01) ==
LOC: EDUNIT# 09:12 → ER FS 09:14
DX: O99.891 Other specified diseases and conditions complicating pregnancy (principal); R82.71 Bacteriuria; O20.0 Threatened abortion; O99.330 Smoking (tobacco) complicating pregnancy, unspecified trimester; F17.210 Nicotine dependence, cigarettes, uncomplicated; Z3A.00 Weeks of gestation of pregnancy not specified
CPT/HCPCS: 36415; 81000; 84702; 87088

== ENCOUNTER 2023-03-28 22:14 | Emergency (ER) | payer BC, OTHER ==
[~2023-03-28] VITALS: Ht 180.3 cm; Wt 127.7 kg
[~2023-03-28 22:14] MED LIST changes: +NITR-65 PO
[2023-03-28] MEDS ORDERED: AMOXICILLIN 500 MG (POLYMOX) CAP PO STA (22:23)
[2023-03-28] MEDS ORDERED: AMOX500T2 PO (22:27)
--- NOTE | 2023-03-28 22:28 | ED Fever ---
History of Present Illness General Stated Complaint: L EAR PAIN, SORE THROAT, COUGH Source: patient Exam Limitations: no limitations History of Present Illness Date Seen by Provider: Mar 28, 2023 Time Seen by Provider: 22:17 Initial Comments 32-year-old female that is roughly 10 weeks estimated gestational age and coming in due to fever, left ear pain, and sore throat that started yesterday. She had Tylenol roughly 6 hours ago which did help. She is unsure if anyone around her has been sick. She is otherwise denying any other acute complaints. has been progressing well since the most recent episode of vaginal bleeding. Allergies and Home Medications Allergies Coded Allergies: aspirin (Unverified Allergy, Mild, 06/15/11) Patient Home Medication List Home Medication List Reviewed: Yes Cyclobenzaprine HCl (Cyclobenzaprine HCl) 10 Mg Tablet, 10 MG PO TID Prescribed by: CAMERON JIMENES on 01/25/22 181 Doxycycline Hyclate (Doxycycline Hyclate) 100 Mg Capsule, 1 EACH PO BID Prescribed by: DERIC MANZANARES on 06/15/11 0245 Hydrocodone/Acetaminophen (Hydrocodone/Acetaminophen 5 MG/325 MG TAB) 1 Each Tablet, 1 EACH PO Q6H PRN for PAIN-MODERATE Prescribed by: CHANDLER BALDWIN on 07/16/182152 Hydrocodone/Acetaminophen (Hydrocodone-Acetamin 5-325 mg) 1 Each Tablet, 1 TAB PO Q6H PRN for PAIN-SEVERE (8-10) Prescribed by: POLLO BELLO on 04/09/21 1529 Ibuprofen (Ibuprofen) 800 Mg Tablet, 800 MG PO Q8H PRN for pain/inflammation Prescribed by: POLLO BELLO on 04/09/21 1528 Nitrofurantoin Monohyd/M-Cryst (Macrobid 100 mg Capsule) 100 Mg Capsule, 1 TAB PO BID Prescribed by: JACINTO SCALES on 03/19/23 1028 Ondansetron (Zofran Odt) 8 Mg Tab.rapdis, 8 MG PO Q6H PRN for NAUSEA/VOMITING Prescribed by: CHANDLER BALDWIN on 07/16/182152 Pantoprazole Sodium (Protonix) 40 Mg Tablet.dr, 40 MG PO DAILY Prescribed by: CHANDLER BALDWIN on 07/16/182152 Tramadol HCl (Tramadol HCl) 50 Mg Tablet, 50 MG PO Q6H PRN for PAIN Prescribed by: CAMERON JIMENES on 01/25/221815 Trimethoprim/Sulfamethoxazole (Bactrim Ds) 1 Ea Tablet, 1 EA PO BID, (Reported) Entered as Reported by: ASHLEY CASEY on 06/15/11 0217 Review of Systems Review of Systems Constitutional: fever EENTM: see HPI Respiratory: no symptoms reported Cardiovascular: no symptoms reported Gastrointestinal: no symptoms reported Genitourinary: no symptoms reported Musculoskeletal: no symptoms reported Skin: no symptoms reported Past Lebjoob-Lutqtp-Bepddt Hx Patient Social History Substance use?: No Seasonal Allergies Seasonal Allergies: No Past Medical History Surgery/Hospitalization HX: Spontaneous x2 Surgeries: Yes Tonsillectomy Respiratory: No Cardiac: No Neurological: No Genitourinary: No Gastrointestinal: No Musculoskeletal: No Endocrine: No Cancer: No Psychosocial: No Integumentary: No Physical Exam Capillary Refill : Height: 5'11.00" Weight: 225lbs. oz. 102.820275td; 30.00 BMI Method:Stated General Appearance: WD/WN, no apparent distress Eyes: Bilateral Eye Normal Inspection, Bilateral Eye PERRL HEENT: PERRL/EOMI; No TM abnormal (R); TM abnormal (L), pharyngeal erythema Neck: non-tender, full range of motion, supple, normal inspection Respiratory: chest non-tender, lungs clear, normal breath sounds, no respiratory distress, no accessory muscle use Cardiovascular: regular rate, rhythm, no edema, no murmur Gastrointestinal: normal bowel sounds, non tender, soft; No distended, No guarding Extremities: normal range of motion, non-tender, normal inspection, no pedal edema, no calf tenderness, normal capillary refill Neurologic/Psychiatric: no motor/sensory deficits, alert, normal mood/affect Skin: normal color, warm/dry Progress/Results/Core Measures Suspected Sepsis SIRS Temperature: Pulse: Respiratory Rate: Blood Pressure / Mean: Results/Orders My Orders Orders - JACINTO SCALES MD Amoxicillin Capsule (Polymox Capsule) (03/28/23 22:23) Vital Signs/I&O Capillary Refill : Progress Note : Progress Note 30-year-old female with above history coming in due to fever, sore throat, and ear pain. ABCs were intact and vitals were stable on presentation. Physical exam with what appears to be acute otitis media on the left, and likely viral pharyngitis, no exudate in the oropharynx. We will give her amoxicillin here followed by prescription. I believe she is otherwise stable for discharge with outpatient follow-up. She was sent home with strict return precautions. Departure Impression Primary Impression: Otitis media Qualified Codes: H66.002 - Acute suppurative otitis media without spont aneous rupture of ear drum, left ear Disposition: HOME, SELF-CARE Condition: Stable Departure-Patient Inst. Decision time for Depature: 22:35 Referrals: NO,LOCAL PHYSICIAN (PCP/Family) Primary Care Physician Patient Instructions: Ear Infection ED Add. Discharge Instructions: It appears like you likely have a viral infection in your throat that has now moved to the ear and that appears more bacterial. He will be on antibiotics for the next 10 days. Please follow-up with your regular doctor if you are not seeing some improvement in the next week or so. Continue to take Tylenol for fever and pain. Scripts Amoxicillin (Amoxicillin) 500 Mg Tablet 1000 MG PO Q8H for 10 Days, #60 TAB Prov: JACINTO SCALES MD 03/28/23 Work/School Note: Work Release Form Date Seen in the Emergency Department: Mar 28, 2023 Return to Work: Mar 30, 2023 Restrictions: Return-No Fever (24hrs) JACINTO SCALES MD Mar 28, 2023 22:28
[2023-03-28 22:30] VITALS: BP 160/111
== END 2023-03-28 22:30 | disposition home or self-care (01) ==
LOC: EDUNIT# 22:14 → ER FS 22:15
DX: O99.891 Other specified diseases and conditions complicating pregnancy (principal); H66.92 Otitis media, unspecified, left ear; Z3A.10 10 weeks gestation of pregnancy; Z28.310 Unvaccinated for COVID-19
CPT/HCPCS: 99283

== ENCOUNTER 2023-08-19 18:20 | Emergency (ER) | payer MEDICAID, OTHER ==
[~2023-08-19] VITALS: Ht 180.3 cm; Wt 131.5 kg
[~2023-08-19 18:20] MED LIST changes: +AMOX500T2 PO
[2023-08-19 18:37] VITALS: BP 157/104
[2023-08-19] MEDS ORDERED: DOCO200C4 PO (20:25)
== END 2023-08-19 19:04 | disposition other institution (70) ==
LOC: EDUNIT# 18:20 → ER 18:23
DX: O99.891 Other specified diseases and conditions complicating pregnancy (principal); R22.40 Localized swelling, mass and lump, unspecified lower limb

== ENCOUNTER 2023-08-19 18:58 | Outpatient (CLI) | payer MEDICAID ==
[~2023-08-19] VITALS: Ht 180.3 cm; Wt 131.6 kg
[2023-08-19 19:35] VITALS: BP 138/89
[2023-08-19 20:09] LABS: BILIRUBIN,URINE NEGATIVE (NEGATIVE); CLARITY,URINE CLEAR; COLOR,URINE YELLOW; GLUCOSE, URINE (UA) NEGATIVE (NEGATIVE); KETONES,URINE NEGATIVE (NEGATIVE); LEUKOCYTE ESTERASE ,URINE TRACE (NEGATIVE); NITRITE,URINE NEGATIVE (NEGATIVE); PH,URINE 6.5 (5-9); PROTEIN,URINE NEGATIVE (NEGATIVE)
[2023-08-19 20:10] LABS: BACTERIA,URINE TRACE /HPF
[2023-08-19] MEDS ORDERED: DOCO200C4 PO (20:25)
== END 2023-08-19 20:30 | disposition home or self-care (01) ==
LOC: WSo 18:58
PROVIDERS: ATTEND Family Medicine
DX: O16.3 Unspecified maternal hypertension, third trimester (principal); Z3A.30 30 weeks gestation of pregnancy
CPT/HCPCS: 81000; 99212